=== PATIENT | female | born 1945 ===

== ENCOUNTER 2018-06-21 02:11 | Day surgery (SDC) | payer MEDICARE, BC ==
[~2018-06-21] VITALS: Ht 170.2 cm; Wt 78.5 kg
[2018-06-21 09:55] VITALS: BP 153/86
[2018-06-21] MEDS ORDERED: NORMOSOL R SOLN(*) 1000 ML BAG 1,000 ML IV PRN (11:25)
[2018-06-21] MEDS ORDERED: LIDOCAINE/SOD BICARB 8.4% SYR ID ONE (11:25)
[2018-06-21 12:30] VITALS: BP 136/78
[2018-06-21 12:45] VITALS: BP 178/92
[2018-06-21 13:00] VITALS: BP 170/92
[2018-06-21 13:08] VITALS: BP 170/97
[2018-06-21 13:12] VITALS: BP 144/92
== END 2018-06-21 13:45 | disposition home or self-care (01) ==
LOC: OR 02:11
PROVIDERS: ATTEND Internal Medicine Gastroenterology
DX: Z12.11 Encounter for screening for malignant neoplasm of colon (principal); K64.8 Other hemorrhoids
CPT/HCPCS: 00812; G0121